=== PATIENT | female | born 1980 | race Caucasian/White ===

== ENCOUNTER 2016-10-20 00:47 | Emergency (ER) | payer MEDICAID ==
[~2016-10-20] VITALS: Ht 160 cm; Wt 95.6 kg
[~2016-10-20 00:47] MED LIST: CIPR500T4 PO; FAMO-18 PO; FOLI-49 PO; HYDR-3498 PO; IBUP-1542 PO; ONDA4TAB8 PO; PREN-29 PO
[2016-10-20 00:56] VITALS: Ht 160 cm; Wt 95.6 kg
[2016-10-20] MEDS ORDERED: ALBU8.5H3 INH (01:23)
[2016-10-20] MEDS ORDERED: AZIT250T94 PO (01:23)
[2016-10-20] MEDS ORDERED: BENZ100C70 PO (01:23)
[2016-10-20 01:36] VITALS: BP 115/70; PULSE 64; RESP 18; TEMP 98.5
--- NOTE | 2016-10-20 01:39 | ERD ---
ER Documentation Chief Complaint Date/Time DATE: 10/20/16 TIME: 01:37 Chief Complaint COUGH X 2 WKS HPI 36-year-old female with no significant past medical history presents the ED complaining of a productive cough that started 2 weeks ago. Patient states that she is tried taking Mucinex without relief of her symptoms. States that her last menses was a few days ago. Reports that her daughter is also sick with similar symptoms. Denies any chest pain, shortness of breath, wheezing, abdominal pain, nausea, vomiting, diarrhea. ROS All systems reviewed and are negative except as per history of present illness. Medications Home Meds Active Scripts Guaifenesin (Guaifenesin) 100 Mg/5 Ml Liquid, 200 MG PO Q6H Y for COUGH, #120 ML Prov:JOHN LEE PA-C 10/20/16 Albuterol Sulfate* (Proair HFA*) 8.5 Gm Hfa.aer.ad, 2 PUFF INH Q4, #1 INHALER Prov:JOHN LEE PA-C 10/20/16 Azithromycin* (Zithromax*) 250 Mg Tablet, 250 MG PO .ZPACK DIRECTED, #6 TAB TAKE 500 MG (2 TABS) THE FIRST DAY THEN 250 MG (1 TAB) DAYS 2-5 Prov:JOHN LEE PA-C 10/20/16 Famotidine* (Pepcid*) 20 Mg Tablet, 20 MG PO BID for 14 Days, TAB Prov:BRANDY ADLER 08/10/15 Ciprofloxacin Hcl* (Ciprofloxacin Hcl*) 500 Mg Tablet, 500 MG PO BID for 7 Days , TAB Prov:BRANDY ADLER 08/10/15 Ondansetron Hcl* (Zofran*) 4 Mg Tablet, 4 MG PO Q6H for NAUSEA AND/OR VOMITING, #30 TAB Prov:BRANDY ADLER 08/10/15 Ibuprofen* (Motrin*) 600 Mg Tab, 600 MG PO Q6, #30 TAB Prov:BRANDY ADLER 08/10/15 Hydrocodone Bit-Acetaminophen* ([place]*) 5-325 Mg Tab, 1 TAB PO Q6 Y for PAIN, # 20 TAB Prov:BRANDY ADLER 08/10/15 Reported Medications Folic Acid* (Folic Acid*) 1 Mg Tablet, 1 MG PO DAILY, TAB 04/04/15 Vit-Fe Fumarate-FA* (Franko Tablet*) 1 Tab Tablet, 1 TAB PO, TAB 04/04/15 Allergies Allergies: Coded Allergies: No Known Allergy (Unverified , 08/10/15) PMhx/Soc History of Surgery: No Anesthesia Reaction: No Hx Neurological Disorder: No Hx Respiratory Disorders: No Hx Cardiac Disorders: No Hx Psychiatric Problems: No Hx Miscellaneous Medical Probl: No Hx Alcohol Use: No Hx Substance Use: No Hx Tobacco Use: No Physical Exam Vitals Vital Signs Date Time Temp Pulse Resp B/P Pulse Ox O2 Delivery O2 Flow Rate FiO2 10/20/16 01:36 98.5 64 18 115/70 100 Room Air 10/20/16 00:56 97.3 71 16 135/68 99 Physical Exam Const: Cxz-bdt-hrjhyzsjy, well-nourished. In no acute distress. Head: Atraumatic, normocephalic Eyes: Normal Conjunctiva without injection. No purulent discharge. PERRL. EOMI ENT: Normal external ear. Ear canal without erythema. Tympanic membrane pearly king without effusion or bulging. Nasal canal clear with normal turbinates. Moist oropharynx without tonsillar exudates. Non-erythematous pharynx. Uvula midline. No drooling. No trismus. Neck: Full range of motion. No meningismus. No cervical lymphadenopathy. Resp: Clear to auscultation bilaterally. No wheezing, rhonchi, rales, or crackles. No accessory muscle use. No retractions. Cardio: Regular rate and rhythm. No murmurs, rubs or gallops. Abd: Soft, non tender, non distended. Normal bowel sounds. No palpable masses. No rebound tenderness. No guarding. Skin: No petechiae or rashes Back: No midline tenderness. No CVA tenderness. Ext: No cyanosis, or edema. Neur: Awake and alert. Psych: Normal Mood and Affect Procedures/MDM This is a 36-year-old female with no significant past medical history presents to the ED complaining of an intermittent productive cough that started 2 weeks ago. Patient is afebrile and nontoxic-appearing. Patient has normal vital signs. This patient presents to the ED with symptoms consistent with bronchitis. She is appropriate for outpatient management. Patient is afebrile and has normal vital signs. Patient's physical exam include lungs which were clear to auscultation and a normal pulse oximetry. There is a low suspicion for pneumonia, pneumothorax, pulmonary embolism, epiglottitis, otitis media, otitis externa, viral/strep pharyngitis, sinusitis, peritonsillar abscess, mastoiditis , retropharyngeal abscess, meningitis, sepsis, acute abdomen or other emergent conditions. Discharge medications: Zithromax, Tessalon Perles, Pro-air Patient was instructed to return to the ED for any new or worsening symptoms. They should otherwise follow up with the primary care provider within 1-2 days. The patient's questions were answered at the time of discharge. Patient understood and agreed with discharge management. Departure Diagnosis: Primary Impression: Bronchitis Condition: Stable Patient Instructions: Bronchitis, Antiobiotic Treatment (Adult) Referrals: COMMUNITY CLINICS YOU HAVE RECEIVED A MEDICAL SCREENING EXAM AND THE RESULTS INDICATE THAT YOU DO NOT HAVE A CONDITION THAT REQUIRES URGENT TREATMENT IN THE EMERGENCY DEPARTMENT. FURTHER EVALUATION AND TREATMENT OF YOUR CONDITION CAN WAIT UNTIL YOU ARE SEEN IN YOUR DOCTORS OFFICE WITHIN THE NEXT 1-2 DAYS. IT IS YOUR RESPONSIBILITY TO MAKE AN APPOINTMENT FOR FOLOW-UP CARE. IF YOU HAVE A PRIMARY DOCTOR --you should call your primary doctor and schedule an appointment IF YOU DO NOT HAVE A PRIMARY DOCTOR YOU CAN CALL OUR PHYSICIAN REFERRAL HOTLINE AT IF YOU CAN NOT AFFORD TO SEE A PHYSICIAN YOU CAN CHOSE FROM THE FOLLOWING [facility] CLINICS [facility] [address] [facility]. [facility] [address] [facility] [facility] [address] [facility] [address] [facility] [address] [facility]. [facility]. [address] [facility]. [facility] YOU HAVE RECEIVED A MEDICAL SCREENING EXAM AND THE RESULTS INDICATE THAT YOU DO NOT HAVE A CONDITION THAT REQUIRES URGENT TREATMENT IN THE EMERGENCY DEPARTMENT. FURTHER EVALUATION AND TREATMENT OF YOUR CONDITION CAN WAIT UNTIL YOU ARE SEEN IN YOUR DOCTORS OFFICE WITHIN THE NEXT 1-2 DAYS. IT IS YOUR RESPONSIBILITY TO MAKE AN APPOINTMENT FOR FOLOW-UP CARE. IF YOU HAVE A PRIMARY DOCTOR --you should call your primary doctor and schedule and appointment IF YOU DO NOT HAVE A PRIMARY DOCTOR YOU CAN CALL OUR PHYSICIAN REFERRAL HOTLINE AT . IF YOU CAN NOT AFFORD TO SEE A PHYSICIAN YOU CAN CHOSE FROM THE FOLLOWING [facility] INSTITUTIONS: [facility] [address] [place] [address] [facility] [address] [place] [address] [facility] + [facility] [address] [place] [address] [facility] URGENT CARE/SPECIALTIES Additional Instructions: FOLLOW UP WITH YOUR PRIMARY CARE PHYSICIAN TOMORROW.Return to this facility if you are not improving as expected. JOHN LEE PA-C Oct 20, 2016 01:39
[2016-10-20] MEDS ORDERED: GUAI-637 PO (01:50)
== END 2016-10-20 02:12 | disposition home or self-care (01) ==
LOC: FTE 00:47
DX: J20.9 Acute bronchitis, unspecified (principal)
CPT/HCPCS: 99284

== ENCOUNTER 2016-10-26 18:51 | Emergency (ER) | payer MEDICAID ==
[~2016-10-26] VITALS: Ht 157.5 cm; Wt 95.0 kg
[~2016-10-26 18:51] MED LIST changes: +ALBU8.5H3 INH; +AZIT250T94 PO; +GUAI-637 PO
[2016-10-26 19:17] VITALS: Ht 157.5 cm; Wt 95.0 kg
--- NOTE | 2016-10-26 20:52 | ERD ---
ER Documentation Chief Complaint Date/Time DATE: 10/26/16 TIME: 20:49 Chief Complaint Cough x3 weeks fever and headache since yesterday HPI Patient is a 36-year-old female who presents to the ED with cough for 3 weeks and congestion. She states that she was given antibiotics last week however she stated that she did not take them as she is breast-feeding. She states that she had a fever of 99 at home. Denies abdominal pain, nausea, vomiting, diarrhea or constipation. Denies headache or dizziness. Denies neck pain or stiffness. Denies chills. Has not taken any medication for her symptoms. Denies leg pain or swelling. No recent travel or recent surgeries or use of OCPs. No other complaints. ROS All systems reviewed and are negative except as per history of present illness. Medications Home Meds Active Scripts Azithromycin* (Zithromax*) 250 Mg Tablet, 250 MG PO .WendyPAJONAH DIRECTED, #6 TAB TAKE 500 MG (2 TABS) THE FIRST DAY THEN 250 MG (1 TAB) DAYS 2-5 Prov:ANA FREGOSO PA-C 10/26/16 Guaifenesin (Guaifenesin) 100 Mg/5 Ml Liquid, 200 MG PO Q6H Y for COUGH, #120 ML Prov:JOHN LEE PA-C 10/20/16 Albuterol Sulfate* (Proair HFA*) 8.5 Gm Hfa.aer.ad, 2 PUFF INH Q4, #1 INHALER Prov:JOHN LEE PA-C 10/20/16 Azithromycin* (Zithromax*) 250 Mg Tablet, 250 MG PO .WendyPAJONAH DIRECTED, #6 TAB TAKE 500 MG (2 TABS) THE FIRST DAY THEN 250 MG (1 TAB) DAYS 2-5 Prov:JOHN LEE PA-C 10/20/16 Famotidine* (Pepcid*) 20 Mg Tablet, 20 MG PO BID for 14 Days, TAB Prov:BRANDY ADLER 08/10/15 Ciprofloxacin Hcl* (Ciprofloxacin Hcl*) 500 Mg Tablet, 500 MG PO BID for 7 Days , TAB Prov:BRANDY ADLER 08/10/15 Ondansetron Hcl* (Zofran*) 4 Mg Tablet, 4 MG PO Q6H for NAUSEA AND/OR VOMITING, #30 TAB Prov:BRANDY ADLER 08/10/15 Ibuprofen* (Motrin*) 600 Mg Tab, 600 MG PO Q6, #30 TAB Prov:BRANDY ADLER 08/10/15 Hydrocodone Bit-Acetaminophen* ([place]*) 5-325 Mg Tab, 1 TAB PO Q6 Y for PAIN, # 20 TAB Prov:BRANDY ADLER 08/10/15 Reported Medications Folic Acid* (Folic Acid*) 1 Mg Tablet, 1 MG PO DAILY, TAB 04/04/15 Vit-Fe Fumarate-FA* (Franko Tablet*) 1 Tab Tablet, 1 TAB PO, TAB 04/04/15 Allergies Allergies: Coded Allergies: No Known Allergy (Unverified , 08/10/15) PMhx/Soc Medical and Surgical Hx: pt denies Medical Hx History of Surgery: Yes (gallbladder 07/2015) Anesthesia Reaction: No Hx Neurological Disorder: No Hx Respiratory Disorders: No Hx Cardiac Disorders: No Hx Psychiatric Problems: No Hx Miscellaneous Medical Probl: No Hx Alcohol Use: No Hx Substance Use: No Hx Tobacco Use: No Smoking Status: Never smoker FmHx Family History: No coronary disease, No diabetes, No other Physical Exam Vitals Vital Signs Date Time Temp Pulse Resp B/P Pulse Ox O2 Delivery O2 Flow Rate FiO2 10/26/16 19:17 98.9 86 20 147/65 97 Physical Exam GENERAL: Well-developed, well-nourished female. Appears in no acute distress. EYES: Pupils are equally reactive bilaterally. EOMs grossly intact. No conjunctival erythema. ENT: Moist mucous membranes. No uvula deviation. No kissing tonsils. No exudates. Bilateral TM nonerythematous and nondraining. No mastoid tenderness NECK: Supple. No lymphadenopathy or thyromegaly. No meningismus. negative kernig. negative brudinski. LUNG: Clear to auscultation bilaterally. No rhonchi, wheezing, rales or coarse breath sounds. No retractions HEART: Regular rate and rhythm. No murmurs, rubs or gallops. NEUROLOGIC: Alert and oriented. Moving all four extremities. 5/5 strength in all extremities. Normal speech. Steady gait. Cranial nerves II through XII intact SKIN: Normal color. Warm and dry. No rashes or lesions. Capillary refill < 2 seconds Procedures/[facility] ER COURSE: I kept the patient and/or family informed of laboratory and diagnostic imaging results throughout the emergency room course. IMAGING STUDIES [place] [address] Radiology Main Line: [phone] DIAGNOSTIC IMAGING REPORT Patient: IMER HENDERSON : 1980 Age: 36 Sex: F MR #: [id number] DOS: 10/26/162000 Ordering MD: ANA FREGOSO PA-C Location: [facility] Room/Bed: PROCEDURE: XR Chest AP portable CLINICAL INDICATION: Cough TECHNIQUE: An AP portable radiograph of the chest was submitted. COMPARISON: None. FINDINGS: Support Hardware: None Cardiovascular: The cardiovascular silhouette appears unremarkable. Lung Sawant: The lung sawant appear clear with no nodule, alveolar infiltrate, or interstitial prominence evident. Pleural Spaces: No pneumothorax or pleural effusion is identified. Osseous Structures: The osseous structures appear intact. Soft Tissues: The soft tissues appear generous. IMPRESSION: Unremarkable portable chest. Physician Lilian Date Time Electronically viewed and signed by Physician Lilian on 10/26/2016 21:00 RH/ CC: ANA FREGOSO PA-C MEDICAL DECISION MAKING: This is a 36-year-old female who presents with cough 3 weeks. Vital signs were reviewed. Patient is afebrile. Patient is not hypoxic. Patient is not toxic or ill-appearing. Patient likely has bronchitis. X-rays of by radiologist is unremarkable. Low suspicion for pneumonia, PE, pneumothorax, ACS, epiglottitis , obstruction, TB, pertussis, meningitis, sepsis. I will be re-prescribing azithromycin. Patient is able to breast-feed with this medication. Patient does not show signs of respiratory distress respiratory failure and speaking in full sentences. DISCHARGE: At this time, patient is stable for discharge and outpatient management with no new complaints during the ER course. Patient was sent home with azithromycin. Patient will be discharged home with instructions to recheck for new or worsening symptoms such as fever, nausea, weakness, LOC and to follow up with primary care in the next 1-2 days. Patient was advised to return to the ER for any new or worsening symptoms. Plan was discussed and patient and/or family understands and agrees. Home instructions were given. Departure Diagnosis: Primary Impression: Bronchitis Condition: Stable ANA FREGOSO PA-C Oct 26, 2016 20:52
--- NOTE | 2016-10-26 21:00 | RADRPT ---
PROCEDURE: XR Chest AP portable CLINICAL INDICATION: Cough TECHNIQUE: An AP portable radiograph of the chest was submitted. COMPARISON: None. FINDINGS: Support Hardware: None Cardiovascular: The cardiovascular silhouette appears unremarkable. Lung Barrett: The lung barrett appear clear with no nodule, alveolar infiltrate, or interstitial promi nence evident. Pleural Spaces: No pneumothorax or pleural effusion is identified. Osseous Structures: The osseous structures appear intact. Soft Tissues: The soft tissues appear generous. IMPRESSION: Unremarkable portable chest. Physician Lilian Date Time Electronically viewed and signed by Heraclio Bull Physician on 10/26/2016 21:00 /
[2016-10-26] MEDS ORDERED: AZIT250T94 PO (21:09)
== END 2016-10-26 21:40 | disposition home or self-care (01) ==
LOC: FTE 18:51
DX: J20.9 Acute bronchitis, unspecified (principal)
CPT/HCPCS: 71010; Z7502

== ENCOUNTER 2016-11-30 20:58 | Emergency (ER) | payer MEDICAID ==
[~2016-11-30] VITALS: Ht 157.5 cm; Wt 94.5 kg
[2016-11-30 21:00] VITALS: Ht 157.5 cm; Wt 94.5 kg
[2016-11-30] MEDS ORDERED: GUAI120S26 PO (21:17)
[2016-11-30] MEDS ORDERED: ALBU8.5H3 INH (21:17)
[2016-11-30] MEDS ORDERED: FLUT9.9S NASAL (21:17)
[2016-11-30] MEDS ORDERED: CETI10CA PO (21:17)
--- NOTE | 2016-11-30 21:24 | ERD ---
ER Documentation Chief Complaint Date/Time DATE: 11/30/16 TIME: 21:23 Chief Complaint cough x 1 month, sore throat HPI 36-year-old female presents here in emergency department for complaint of sore throat cough for a congestion and off wheezing for one month. Patient has been seen before for bronchitis, already told antibiotics, finished dosage. Patient does not have any fever. Patient does not have any chest pain or palpitations. Patient has been having sneezing, runny nose nasal congestion. Patient does not have any shortness of breath. ROS All systems reviewed and are negative except as per history of present illness. Medications Home Meds Active Scripts Fluticasone Propionate (Flonase Allergy Relief) 9.9 Ml [place].susp, 2 SPRAY NASAL DAILY, #1 BOTTLE TO EACH NOSTRIL Prov:BERNABE PATRICK NP 11/30/16 Cetirizine Hcl* (Zyrtec*) 10 Mg Capsule, 10 MG PO DAILY, #30 TAB.CHEW Prov:BERNABE PATRICK NP 11/30/16 Iruaqlnmtfd-J-Qngesedyuq Hb* (Guaifenesin* DM Syrup) 120 Ml Syrup, 10 ML PO Q4H Y for COUGH, #120 ML Prov:BERNABE PATRICK NP 11/30/16 Albuterol Sulfate* (Proair HFA*) 8.5 Gm Hfa.aer.ad, 2 PUFF INH Q4H Y for WHEEZING AND SOB, #1 INHALER Prov:BERNABE PATRICK NP 11/30/16 Azithromycin* (Zithromax*) 250 Mg Tablet, 250 MG PO .SUSI DIRECTED, #6 TAB TAKE 500 MG (2 TABS) THE FIRST DAY THEN 250 MG (1 TAB) DAYS 2-5 Prov:ANA FREGOSO PA-C 10/26/16 Guaifenesin (Guaifenesin) 100 Mg/5 Ml Liquid, 200 MG PO Q6H Y for COUGH, #120 ML Prov:JONH LEE PA-C 10/20/16 Albuterol Sulfate* (Proair HFA*) 8.5 Gm Hfa.aer.ad, 2 PUFF INH Q4, #1 INHALER Prov:JOHN LEE PA-C 10/20/16 Azithromycin* (Zithromax*) 250 Mg Tablet, 250 MG PO .WendyPACK DIRECTED, #6 TAB TAKE 500 MG (2 TABS) THE FIRST DAY THEN 250 MG (1 TAB) DAYS 2-5 Prov:JOHN LEE Alicia STEPHEN 10/20/16 Famotidine* (Pepcid*) 20 Mg Tablet, 20 MG PO BID for 14 Days, TAB Prov:BRANDY ADLER 08/10/15 Ciprofloxacin Hcl* (Ciprofloxacin Hcl*) 500 Mg Tablet, 500 MG PO BID for 7 Days , TAB Prov:BRANDY ADLER 08/10/15 Ondansetron Hcl* (Zofran*) 4 Mg Tablet, 4 MG PO Q6H for NAUSEA AND/OR VOMITING, #30 TAB Prov:BRANDY ADLER 08/10/15 Ibuprofen* (Motrin*) 600 Mg Tab, 600 MG PO Q6, #30 TAB Prov:BRANDY ADLER 08/10/15 Hydrocodone Bit-Acetaminophen* ([place]*) 5-325 Mg Tab, 1 TAB PO Q6 Y for PAIN, # 20 TAB Prov:BRANDY ADLER 08/10/15 Reported Medications Folic Acid* (Folic Acid*) 1 Mg Tablet, 1 MG PO DAILY, TAB 04/04/15 Vit-Fe Fumarate-FA* (Franko Tablet*) 1 Tab Tablet, 1 TAB PO, TAB 04/04/15 Allergies Allergies: Coded Allergies: No Known Allergy (Unverified , 08/10/15) PMhx/Soc History of Surgery: Yes (gallbladder 07/2015) Anesthesia Reaction: No Hx Neurological Disorder: No Hx Respiratory Disorders: No Hx Cardiac Disorders: No Hx Psychiatric Problems: No Hx Miscellaneous Medical Probl: No Hx Alcohol Use: No Hx Substance Use: No Hx Tobacco Use: No FmHx Family History: No coronary disease, No diabetes, No other Physical Exam Vitals Vital Signs Date Time Temp Pulse Resp B/P Pulse Ox O2 Delivery O2 Flow Rate FiO2 11/30/16 21:00 97.8 60 20 122/58 100 Physical Exam GENERAL: The patient is well developed and appropriate for usual state of health, in no apparent distress. CHEST: Clear to auscultation bilaterally. There are no rales, wheezes or rhonchi. HEART: Regular rate and rhythm. No murmurs, clicks, rubs or gallops. No S3 or S4. ABDOMEN: Soft, nontender and nondistended. Good bowel sounds. No rebound or guarding. No gross peritonitis. No gross organomegaly or masses. No Pinto sign or McBurney point tenderness. BACK: No midline or flank tenderness. EXTREMITIES: Equal pulses bilaterally. There is no peripheral clubbing, cyanosis or edema. No focal swelling or erythema. Full range of motion. Grossly neurovascularly intact. NEURO: Alert and oriented. Cranial nerves 2-12 intact. Motor strength in all 4 extremities with 5/5 strength. Sensation grossly intact. Normal speech and gait. SKIN: There is no apparent rash or petechia. The skin is warm and dry. HEMATOLOGIC AND LYMPHATIC: There is no evidence of excessive bruising or lymphedema. No gross cervical, axillary, or inguinal lymphadenopathy. Procedures/MDM Medical Decision Making: Patient symptoms are most likely consistent with runny cough, possible allergic rhinitis related. There is low suspicion for Pneumonia at this time since patients lungs sounds are clear, patient O2 saturation is normal and patient doesnt show any respiratory distress. Radiology exam does not indicated at this time. There is low suspicion for other cardiopulmonary emergencies at this time such as CHF, Pulmonary Embolism, Pneumothorax, Aortic Aneurysm or any other cardiopulmonary emergencies at this time. There is low suspicion for sepsis. Patient appears well and is hemodynamically stable. She does not have any fever. Disposition: Home. Condition: Stable Prescriptions: Albuterol guaifenesin DM Zyrtec Flonase Instructions: Patient is advised to take medications as prescribed. Patient is advised to rest. Patient advised to increase fluid intake, do humidifier at home and if possible, do salt water gargles. Patient is advised that if symptoms are worse, shortness of breath, uncontrolled fever, stridor, vomiting, worst signs and symptoms to return to emergency department immediately. Otherwise, patient is advised to follow up with primary doctor in 5-7 days. Departure Diagnosis: Primary Impression: Chronic cough Condition: Stable Patient Instructions: Cough, Chronic, Uncertain Cause, (Adult) Referrals: [facility] ([place]) Usted se escobar hecho un examen mdico de control que le indica que no est en aurora condicin que requiera tratamiento urgente en el Departamento de Emergencia. Un estudio ms profundo y el tratamiento de haji condicin pueden esperar sin ningn riesgo hasta que usted sea atendida/o en el consultorio de haji mdico o aurora cl manda. Es responsabilidad suya arreglar aurora castro para el seguimiento del markell. MANEJO DE CONDICIONES NO URGENTES EN EL FUTURO 1) Si usted tiene un mdico de atencin primaria: Usted debera llamar a haji mdico de atencin primaria antes de venir al departamento de emergencia. Despus de las horas de consultorio, haji doctor o haji asociado/a est disponible por telfono. El mdico o enfermero de cindy en el servicio telefnico puede asesorarle por lisa medio para atender el problema, o markell contrario se puede programar aurora castro. 2) Si usted no tiene un mdico de atencin primaria: Llame al mdico o clnica de referencia que aparece abajo johana las horas de consultorio para hacer aurora castro para que le vean. CLINICAS: [facility] [phone] [address] [facility] [phone] [address] [facility]. [facility] [phone] [address] [facility]. [place] [id number] [phone] [facility] [place] [address] [phone] [facility]. [phone] [facility] () Usted se escobar hecho un examen mdico de control que le indica que no est en aurora condicin que requiera tratamiento urgente en el Departamento de Emergencia. Un estudio ms profundo y el tratamiento de haji condicin pueden esperar sin ningn riesgo hasta que usted sea atendida/o en el consultorio de haji mdico o aurora cl manda. Es responsabilidad suya arreglar aurora castro para el seguimiento del markell. MANEJO DE CONDICIONES NO URGENTES EN EL FUTURO 1) Si usted tiene un mdico de atencin primaria: Usted debera llamar a haji mdico de atencin primaria antes de venir al departamento de emergencia. Despus de las horas de consultorio, haji doctor o haji asociado/a est disponible por telfono. El mdico o enfermero de cindy en el servicio telefnico puede asesorarle por lisa medio para atender el problema, o markell contrario se puede programar aurora castro. 2) Si usted no tiene un mdico de atencin primaria: Llame al mdico o condado institucions de referencia que aparece abajo johana las horas de consultorio para hacer aurora castro para que le vean. SI USTED NO PUEDE PAGAR PARA BRIDGET UN MEDICO puede ir a: [facility] [id number] [place] [address] [facility] [address] [place] [address] [facility] [address] [place] [address] [facility] [address] [place], [place] [id number] CUISIA,BERNABE Vargas NP Nov 30, 2016 21:24
== END 2016-11-30 21:24 | disposition home or self-care (01) ==
LOC: E/R 20:58
DX: R05 Cough (principal)
CPT/HCPCS: 99283

== ENCOUNTER 2018-09-07 10:49 | Inpatient (IN) | payer BC ==
[~2018-09-07] VITALS: Ht 160 cm; Wt 105.0 kg
[~2018-09-07 10:49] MED LIST changes: -ALBU8.5H3 INH; +ALBU8.5H8 INH; +AZIT250T PO; -AZIT250T94 PO; +CETI10CA PO; -FAMO-18 PO; +FAMO-96 PO; +FLUT9.9S NASAL; +GUAI120S26 PO; +OXYTOCIN 30 UNITS/LR 500 ML BAG IV ONE
[2018-09-07] MEDS ORDERED: LACTATED RINGER'S 1,000 ML IV SCH (10:59)
[2018-09-07] MEDS ORDERED: OXYTOCIN 30 UNITS/LR 500 ML IV SCH ×2 (11:00→13:55)
[2018-09-07] MEDS ORDERED: CEFAZOLIN 2 GM/50 ML (PMX) 50 ML IVPB SCH (11:00)
[2018-09-07] MEDS ORDERED: METHYLERGONOVINE 0.2 MG INJ IM PRN ×2 (11:00→14:00)
[2018-09-07] MEDS ORDERED: CARBOPROST 250 MCG INJ IM PRN ×2 (11:00→14:00)
[2018-09-07] MEDS ORDERED: OXYTOCIN 30 UNITS/LR 500 ML IV PRN ×2 (11:00→14:00)
[2018-09-07] MEDS ORDERED: MISOPROSTOL 200 MCG TAB PR PRN ×2 (11:00→14:00)
[2018-09-07 11:25] VITALS: BP 109/65; PULSE 85; RESP 20
[2018-09-07 11:29] VITALS: Ht 160 cm; Wt 105.0 kg
[2018-09-07] MEDS ORDERED: PNV11TAB PO (11:29)
--- NOTE | 2018-09-07 12:40 | PREAC ---
Date/Time of Note Date/Time of Note DATE: 09/07/18 TIME: 12:39 Anesthesia Eval and Record Evaluation Time Pre-Procedure Interview DATE: 09/07/18 TIME: 12:39 Age 38 Sex female NPO: 8 hrs Preoperative diagnosis Planned procedure cs Past Medical History Past Medical History: Includes Pulm: Asthma GI: Morbid obesity Surgery & Anesthesia Issues No known issue Meds Anticoagulation: No Beta Mike within 24 hr: No Reason Beta Mike not given: Pt. not on B-Mike Active Scripts Fluticasone Propionate (Flonase Allergy Relief) 9.9 Ml [place].susp, 2 SPRAY NASAL DAILY, #1 BOTTLE TO EACH NOSTRIL Prov:BERNABE PATRICK NP 11/30/16 Cetirizine Hcl* (Zyrtec*) 10 Mg Capsule, 10 MG PO DAILY, #30 TAB.CHEW Prov:BERNABE PATRICK NP 11/30/16 Itwmvsqeler-D-Glklspjrlz Hb* (Guaifenesin* DM Syrup) 120 Ml Syrup, 10 ML PO Q4H PRN for COUGH, #120 ML Prov:BERNABE PATRICK NP 11/30/16 Albuterol Sulfate* (Proair HFA*) 8.5 Gm Hfa.aer.ad, 2 PUFF INH Q4H PRN for WHEEZING AND SOB, #1 INHALER Prov:BERNABE PATRICK NP 11/30/16 Azithromycin* (Zithromax*) 250 Mg Tablet, 250 MG PO .ZPACK DIRECTED, #6 TAB TAKE 500 MG (2 TABS) THE FIRST DAY THEN 250 MG (1 TAB) DAYS 2-5 Prov:ANA FREGOSO PA-C 10/26/16 Guaifenesin (Guaifenesin) 100 Mg/5 Ml Liquid, 200 MG PO Q6H PRN for COUGH, #120 ML Prov:JOHN LEE PA-C 10/20/16 Albuterol Sulfate* (Proair HFA*) 8.5 Gm Hfa.aer.ad, 2 PUFF INH Q4, #1 INHALER Prov:JOHN LEE PA-C 10/20/16 Azithromycin* (Zithromax*) 250 Mg Tablet, 250 MG PO .ZPACK DIRECTED, #6 TAB TAKE 500 MG (2 TABS) THE FIRST DAY THEN 250 MG (1 TAB) DAYS 2-5 Prov:JOHN LEE PA-C 10/20/16 Famotidine* (Pepcid*) 20 Mg Tablet, 20 MG PO BID for 14 Days, TAB Prov:BRANDY ADLER 08/10/15 Ciprofloxacin Hcl* (Ciprofloxacin Hcl*) 500 Mg Tablet, 500 MG PO BID for 7 Days, TAB Prov:BRANDY ADLER 08/10/15 Ondansetron Hcl* (Zofran*) 4 Mg Tablet, 4 MG PO Q6H for NAUSEA AND/OR VOMITING, #30 TAB Prov:BRANDY ADLER 08/10/15 Ibuprofen* (Motrin*) 600 Mg Tab, 600 MG PO Q6, #30 TAB Prov:BRANDY ADLER 08/10/15 Hydrocodone Bit-Acetaminophen* ([place]*) 5-325 Mg Tab, 1 TAB PO Q6 PRN for PAIN, #20 TAB Prov:BRANDY ADLER 08/10/15 Reported Medications [id number] Nmfztuyf-HH-QNB ( ) 1 Each Tablet, 1 TAB PO DAILY, TAB 09/07/18 Folic Acid* (Folic Acid*) 1 Mg Tablet, 1 MG PO DAILY, TAB 04/04/15 Vit-Fe Fumarate-FA* ([place] Tablet*) 1 Tab Tablet, 1 TAB PO, TAB 04/04/15 Current Medications Lactated Ringer's 1,000 ml @ 125 mls/hr Q8H IV Last administered on 09/07/18at 12:11; Admin Dose 125 MLS/HR; Start 09/07/18 at 10:59 Cefazolin Sodium/ Dextrose 50 ml @ 100 mls/hr ONCE IVPB ; Start 09/07/18 at 11:00 Oxytocin/Lactated Ringer's 500 ml @ 125 mls/hr POST IV ; Start 09/07/18 at 11:00 Oxytocin/Lactated Ringer's 500 ml @ 0 mls/hr ONCE PRN IV VAGINAL BLEEDING; Start 09/07/18 at 11:00 Methylergonovine Maleate (Methergine) 0.2 mg ONCE PRN IM VAGINAL BLEEDING; Start 09/07/18 at 11:00 Carboprost Tromethamine (Hemabate) 250 mcg ONCE PRN IM VAGINAL BLEEDING; Start 09/07/18 at 11:00 Misoprostol (Cytotec) 1,000 mcg ONCE PRN NE VAGINAL BLEEDING; Start 09/07/18 at 11:00 Meds reviewed: Yes Allergies Coded Allergies: No Known Allergy (Unverified , 08/10/15) Allergies Reviewed: Yes Labs/Studies Labs Reviewed: Reviewed by anesthesiologist Result Diagram: 09/07/18 1204 Laboratory Tests 09/07/18 12:04 test: Positive Studies: ECG Pre-procedure Exam Last vitals Vital Signs Date Temp Pulse Resp B/P (MAP) Pulse Ox O2 O2 Flow FiO2 Time Delivery Rate 09/07/18 98.0 85 20 109/65 98 Room Air 11:25 (80) Airway: Adequate mouth opening, Adequate thyromental dist Mallampati: Mallampati II Teeth: Normal Lung: Normal Heart: Normal ASA Physical Status ASA physical status: 2 Emergency: None Planned Anesthetic Neuraxial: Spinal Planned Pain Management Sub-arachniod narcotics Pre-operative Attestations Prior to commencing anesthesia and surgery, the patient was re-evaluated, there was verification of: *The patient's identity *The results of appropriate recent lab work and preoperative vital signs *The above evaluation not changing prior to induction *Anesthetic plan, risk benefits, alternative and complications discussed with patient/family; questions answered; patient/family understands, accepts and wishes to proceed. DANIELLA CURRY Sep 07, 2018 12:40
[2018-09-07] MEDS ORDERED: METOCLOPRAMIDE 10 MG INJ IV PRN (13:00)
[2018-09-07] MEDS ORDERED: NALOXONE (0.4 MG/ML) INJ IV PRN (13:00)
[2018-09-07] MEDS ORDERED: KETOROLAC 30 MG INJ IV PRN (13:00)
[2018-09-07] MEDS ORDERED: HYDROmorphONE 0.5 MG/0.5 ML SYG IV PRN ×2 (13:00)
[2018-09-07] MEDS ORDERED: DIPHENHYDRAMINE 50 MG INJ IV PRN ×2 (13:00)
[2018-09-07] MEDS ORDERED: HYDROmorphONE 1 MG/5 ML IV SYRINGE IV PRN ×3 (13:00)
[2018-09-07] MEDS ORDERED: ALBUTEROL 0.083% (NEB) 2.5 MG/3 ML AMP HHN PRN (13:00)
[2018-09-07] MEDS ORDERED: FENTAnyl 50 MCG/ML VIAL IV PRN ×3 (13:00)
[2018-09-07] MEDS ORDERED: ONDANSETRON 4 MG INJ IV PRN ×2 (13:00)
[2018-09-07] MEDS ORDERED: PHENYLephrine (100 MCG/ML) 5ML SYG ONE ×3 (13:09→13:51)
[2018-09-07] MEDS ORDERED: EPHEDrine 25 MG/5 ML SYG ONE (13:26)
[2018-09-07] MEDS ORDERED: morphine SULFATE/PF (10 MG/10 ML) INJ ONE (13:47)
--- NOTE | 2018-09-07 13:50 | PREOPHP ---
DATE OF ADMISSION: 09/07/2018 HISTORY OF PRESENT ILLNESS: Ms. Gambino is a 38-year-old 2, para 1, EDC 09/14/2018 intrau terine at 39 weeks gestational age, admitted today for elective primary delivery s econdary to suspected macrosomia. She denies any contractions, vaginal bleeding, or discharge. Patient understands that the estimated weight performed on 08/30/2018 of 9 pounds 9 ounces is only an estimation and is not accurate. After explaining the risks, benefits and alternatives, the patient agreed to undergo a primary . Her care took place with Dr. Camp. PAST MEDICAL HISTORY: None. MEDICATIONS: vitamins. PAST SURGICAL HISTORY: Laparoscopic cholecystectomy. OBSTETRICAL HISTORY: x1 vaginal delivery. GYNECOLOGIC HISTORY: 12, regular 3 to 4 days. Denies any sexually transmitted disease. Sexually ac tive with 1 partner. SOCIAL HISTORY: Denies any smoking, drugs or alcohol. FAMILY HISTORY: None. REVIEW OF SYSTEMS: All within normal except history of present illness. PHYSICAL EXAMINATION: HEENT: Within normal. LUNGS: CTA bilateral. CARDIOVASCULAR: S1, S2. Regular rhythm. ABDOMEN: Obese, gravid, nontender. Negative CVA bilateral. EXTREMITIES: No calf tenderness. PELVIC: Vaginal exam deferred. heart tracing category 1. [place] occasional contractions. ASSESSMENT: Intrauterine at 39 weeks gestational age with suspected macrosomia. Pat ient concern for shoulder dystocia and desires elective primary delivery. PLAN: Consent for a primary . Risks, benefits and alternatives explained. All questions w ere answered. Dictated By: LIAM BLAND/NTS Conf#: [id number] DID#: [id number] CC: LIAM ROMERO MD;*EndCC*
--- NOTE | 2018-09-07 13:55 | OPPN ---
Date/Time of Note Date/Time of Note DATE: 09/07/18 TIME: 13:53 Operative Report Planned Procedure Procedure date Sep 07, 2018 Procedure(s) primary low transverse CD with myomectomy Performed by see signature line Senior Animator: SAGAR DEL ANGEL MD 2nd Senior Animator none Pre-procedure diagnosis iup at 39 wks ga, suspected macrosomia desire CD for concerns of shoulder dystocia [id number] Anesthesia Type: Ztyer5l spinal Post-Procedure Post-procedure diagnosis same Findings a viable male 9/9 weight 8lb 7 oz, 1 cm firbroid in lower uterine segment. normal tubes and ovaries Estimated Blood Loss: 500 - 600 mls Specimen(s) fibroid Grafts/Implant(s) none Complication(s) none LIAM ROMERO MD Sep 07, 2018 13:55
[2018-09-07] MEDS: CEFAZOLIN 2 GM/50 ML (PMX) 50 ML IVPB SCH ×2 (14:00→22:14)
[2018-09-07] MEDS ORDERED: NACL 0.9% 3 ML SYG IV SCH (14:00)
[2018-09-07] MEDS ORDERED: LANOLIN HPA 1 PKT TOP PRN (14:00)
[2018-09-07] MEDS ORDERED: OXYCODONE/ACETAMINOPHEN (5/325) TAB PO PRN ×2 (14:00)
[2018-09-07] MEDS: KETOROLAC 30 MG INJ IV PRN ×2 (15:27→23:35)
[2018-09-07 17:15] VITALS: BP 116/58; PULSE 90; RESP 20
[2018-09-07 17:45] VITALS: BP 117/57; PULSE 86; RESP 18
--- NOTE | 2018-09-07 18:38 | PAC ---
Date/Time of Note Date/Time of Note DATE: 09/07/18 TIME: 18:38 Post-Anesthesia Notes Post-Anesthesia Note Last documented vital signs Vital Signs Date Temp Pulse Resp B/P (MAP) Pulse Ox O2 O2 Flow FiO2 Time Delivery Rate 09/07/18 99.0 90 20 116/58 Room Air 17:15 (77) 09/07/18 98 11:25 Activity: WNL Respiratory function: WNL Cardiovascular function: WNL Mental status: Baseline Pain reasonably controlled: Yes Hydration appropriate: Yes Nausea/Vomiting absent: Yes DANIELLA CURRY Sep 07, 2018 18:38
[2018-09-07 19:50] VITALS: BP 101/57; PULSE 86; RESP 18
[2018-09-07] MEDS: SENNA/DOCUSATE NA (8.6MG/50MG) TAB PO SCH (20:47)
[2018-09-08 00:40] VITALS: BP 120/66; PULSE 54; RESP 20
[2018-09-08 04:20] VITALS: BP 93/52; PULSE 77; RESP 18
[2018-09-08] MEDS: KETOROLAC 30 MG INJ IV PRN (05:32)
[2018-09-08] MEDS: CEFAZOLIN 2 GM/50 ML (PMX) 50 ML IVPB SCH ×2 (05:32→13:30)
[2018-09-08] MEDS: LACTATED RINGER'S 1,000 ML IV SCH (05:32)
[2018-09-08 08:30] VITALS: BP 101/56; PULSE 72; RESP 20
[2018-09-08] MEDS: SENNA/DOCUSATE NA (8.6MG/50MG) TAB PO SCH ×2 (10:09→21:49)
[2018-09-08 12:15] VITALS: BP 103/56; PULSE 77; RESP 20
[2018-09-08] MEDS: IBUPROFEN 600 MG TAB PO SCH ×2 (13:29→18:09)
--- NOTE | 2018-09-08 13:33 | OPR ---
DATE OF OPERATION: 09/08/2018 PREOPERATIVE DIAGNOSES: Intrauterine at 39 weeks gestational age, suspected macrosomia, desires delivery for concerns of should dystocia. POSTOPERATIVE DIAGNOSES: Intrauterine at 39 weeks gestational age, suspected macrosomia, desires delivery for concerns of shoulder dystocia. PROCEDURE: Primary low transverse delivery. myomectomy SURGEON: Liam Romero MD CHOCOLATE REFINING ROLLER: Dr. Rosa. ANESTHESIA: Spinal. COMPLICATIONS: None. ESTIMATED BLOOD LOSS: 500 mL. FINDINGS: A viable male, 9 and 9 respectively at 1 and 5 minutes, weight 8 pounds 7 ounces, x1 cord around the neck noted. Positive intramural fibroid on the anterior lower uterine segment of the uterus, normal ovaries and tubes. DESCRIPTION OF PROCEDURE: After explaining the risks, benefits and alternatives, the patient had consent signed in chart, the patient was taken to the operating room where spinal anesthesia was found to be adequate. She was then prepared and draped in normal sterile fashion in a dorsal supine position with a leftward tilt. A Pfannenstiel skin incision was then made with a scalpel and carried through the underlying of the fascia. The fascia was incised in midline, incision was extended laterally with [place] scissors. The superior aspect of the fascial incision was grasped with curved clamps, elevated and the underlying rectus muscles dissected off bluntly. Attention was then turned to the inferior aspect incision which in similar fashion was grasped, tented up with curved clamps and the rectus muscles dissected off bluntly. The rectus muscle was in midline, peritoneum identified, grasped with pickups and entered sharply with Metzenbaum scissors. This incision was extended superiorly and inferiorly with good visualization of the bladder. The bladder blade was then inserted and the vesicouterine peritoneum identified, grasped with pickups and entered sharply with Metzenbaum scissors. This incision was extended laterally and a bladder flap created digitally. The bladder blade was then reinserted and the segment incised in transverse fashion with a scalpel. The uterine incision was extended laterally. The bladder blade was then removed and the 's head delivered atraumatically. The nose and mouth were suctioned, cord clamped and cut. The infant was handed off to waiting yarn bleaching machine operator. The placenta was then removed. The uterus was cleared of all clots and debris. At this point, a myomectomy was performed in the lower uterine segment of the incision, which was approximately 1 cm in size. Good hemostasis was noted. The uterine incision was then repaired with 1-0 chromic in a running locked fashion. A second layer of same suture was used for obtaining excellent hemostasis and for imbrication. The uterus was returned to the abdomen. The gutters were cleared of all clots. The peritoneum and rectus abdominis muscles were reapproximated with 0 Vicryl in the interrupted fashion. The fascia was reapproximated with 0 Vicryl in a running fashion. The subcutaneous tissue was reapproximated with 2-0 plain gut in a running fashion. The skin was closed with absorbable macie. The patient tolerated procedure well. All counts were correct. The patient was taken to recovery room in stable condition. PATHOLOGY: Fibroids. Dictated By: LIAM BLAND/CHRISTINE Conf#: [id number] DID#: [id number] CC: LIAM ROMERO MD;*EndCC* MTDD
[2018-09-08 16:07] VITALS: BP 95/52; PULSE 71; RESP 20
[2018-09-08 20:20] VITALS: BP 100/57; PULSE 78; RESP 17
--- NOTE | 2018-09-08 22:23 | QN ---
Documentation Comment progress note pod 1 patient seen and evaluated no complaints vs stable afebrile ab c/d/i no distention extremity no edema no calf tenderness a/ sp cd pod 1 stable afebrile p/ encourage ambulation iron supplement LIAM ROMERO MD Sep 08, 2018 22:23
[2018-09-09] MEDS: LACTATED RINGER'S 1,000 ML IV SCH (01:30)
[2018-09-09 04:00] VITALS: BP 91/42; PULSE 62; RESP 18
[2018-09-09] MEDS: IBUPROFEN 600 MG TAB PO SCH ×5 (05:35→23:36)
[2018-09-09 08:00] VITALS: BP 104/51; PULSE 65; RESP 18
[2018-09-09] MEDS: SENNA/DOCUSATE NA (8.6MG/50MG) TAB PO SCH ×2 (09:41→21:24)
[2018-09-09] MEDS: FERROUS SULFATE (EC) 325 MG TAB PO SCH ×2 (09:41→21:24)
--- NOTE | 2018-09-09 11:39 | QN ---
Documentation Comment progress note pod 2 patient seen and evaluated no complaints vs stable afebrile ab c/d/i no distention extremity no edema no calf tenderness a/ sp cd pod 2 stable afebrile p/ encourage ambulation discharge home tomorrow LIAM ROMERO MD Sep 09, 2018 11:39
--- NOTE | 2018-09-09 11:45 | PD.PPDC ---
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
[2018-09-09 15:51] VITALS: BP 128/75; PULSE 68
[2018-09-09 21:00] VITALS: BP 107/55; PULSE 66; RESP 18
--- NOTE | 2018-09-09 22:15 | DS ---
DATE OF ADMISSION: 09/07/2018 DATE OF DISCHARGE: 09/10/2018 PRIMARY DIAGNOSES: Intrauterine at 39 weeks gestational age, suspected macrosomia, d esires delivery secondary to concerns of shoulder dystocia. PROCEDURE: Primary low transverse delivery. CONDITION ON DISCHARGE: Stable. ACTIVITY: None per vagina, no lifting x6 weeks. DIET: Regular. MEDICATIONS ON DISCHARGE: 1. Motrin. 2. Iron. DISCHARGE SUMMARY: Ms. Ana Maria Umanzor underwent a primary low transverse delivery on 0 09/07/2018. She had a viable male, 9 and 9 respectively at 1 and 5 minutes, weight 8 pounds 7 o unces. She had also a fibroid removed from the lower uterine segment which was approximately 1 cm in size. She had an uneventful postop day 1, 2, and 3. Her incision is clean, dry, and intact. She i s ambulating, tolerating diet, positive flatulence, positive bowel movement. She will follow up in t clinic in 2 weeks for /postop care. Dictated By: LIAM BLAND/CHRISTINE Conf#: [id number] DID#: [id number]
[2018-09-10 04:00] VITALS: BP 100/53; PULSE 65; RESP 17
[2018-09-10] MEDS: IBUPROFEN 600 MG TAB PO SCH ×2 (05:55→11:43)
[2018-09-10 08:00] VITALS: BP 113/65; PULSE 65; RESP 18
[2018-09-10] MEDS: SENNA/DOCUSATE NA (8.6MG/50MG) TAB PO SCH (09:13)
[2018-09-10] MEDS: FERROUS SULFATE (EC) 325 MG TAB PO SCH (09:13)
--- NOTE | 2018-09-17 18:45 | CONS ---
Consultation Date/Type/Reason Admit Date/Time Sep 07, 2018 at 10:49 Initial Consult Date 09/08/18 Type of Consult Anesthesiology Reason for Consultation Follow up Date/Time of Note DATE: 09/17/18 TIME: 18:44 24 HR Interval Summary Free Text/Dictation Pt seen and examined at bedside on 09/08/18 POD#1 s/p c/s. Pt received spinal duramorph for post op pain control. No N/V/STEVENS/Numbness in extremities. DANIELLA CURRY Sep 17, 2018 18:45
== END 2018-09-10 13:12 | disposition home or self-care (01) | DRG 788 ==
LOC: L-D 10:49 → PP1 17:09
PROVIDERS: ADMIT Obstetrics & Gynecology; ATTEND Obstetrics & Gynecology
PROC: 10D00Z1 Extraction of Products of Conception, Low, Open Approach (ICD-10-PCS; principal; 2018-09-08)
PROC: 0UB90ZZ Excision of Uterus, Open Approach (ICD-10-PCS; 2018-09-08)
DX: O66.0 Obstructed labor due to shoulder dystocia (principal); O36.63X0 Maternal care for excessive fetal growth, third trimester, not applicable or unspecified; Z3A.39 39 weeks gestation of pregnancy; Z37.0 Single live birth
CPT/HCPCS: 76815; 85025; 85610; 85730; 86592; 86850; 86885; 86900; 86901; 87340; 88305; 99464; J0690; J1885; J2274; J2370; J2405; J2590; J2790; J3010; J7120

== ENCOUNTER 2018-11-25 21:10 | Emergency (ER) | payer BC ==
[~2018-11-25] VITALS: Ht 162.6 cm; Wt 95.6 kg
[~2018-11-25 21:10] MED LIST changes: -AZIT250T PO; -CIPR500T4 PO; -FOLI-49 PO; -GUAI-637 PO; -GUAI120S26 PO; -HYDR-3498 PO; -ONDA4TAB8 PO; -OXYTOCIN 30 UNITS/LR 500 ML BAG IV ONE; +PNV11TAB PO; -PREN-29 PO
[2018-11-25 21:15] VITALS: Ht 162.6 cm; Wt 95.6 kg
--- NOTE | 2018-11-26 00:19 | ERD ---
ER Documentation Chief Complaint Chief Complaint left breast pain x 1 day HPI This is a 38-year-old patient who presents to the emergency room with complaint of pain to left lateral breast increasing in severity over the last week. Yesterday she started feeling dizzy and nauseated with pain while breast- feeding. Reports T-max at 100.2. No significant medical history. No hx of mastitis or breast disorders. ROS All systems reviewed and are negative except as per history of present illness. Medications Home Meds Active Scripts Cephalexin* (Keflex*) 500 Mg Capsule, 500 MG PO QID for 10 Days, #40 CAP Prov:MYRON SCHMITZ NP 11/26/18 Ibuprofen* (Motrin*) 600 Mg Tab, 600 MG PO Q6, #30 TAB Prov:MYRON SCHMITZ NP 11/26/18 Fluticasone Propionate (Flonase Allergy Relief) 9.9 Ml [place].susp, 2 SPRAY NASAL DAILY, #1 BOTTLE TO EACH NOSTRIL Prov:BERNABE PATRICK NP 11/30/16 Cetirizine Hcl* (Zyrtec*) 10 Mg Capsule, 10 MG PO DAILY, #30 TAB.CHEW Prov:BERNABE PATRICK NP 11/30/16 Albuterol Sulfate* (Proair HFA*) 8.5 Gm Hfa.aer.ad, 2 PUFF INH Q4H PRN for WHEEZING AND SOB, #1 INHALER Prov:BERNABE PATRICK NP 11/30/16 Albuterol Sulfate* (Proair HFA*) 8.5 Gm Hfa.aer.ad, 2 PUFF INH Q4, #1 INHALER Prov:JOHN LEE PA-C 10/20/16 Famotidine* (Pepcid*) 20 Mg Tablet, 20 MG PO BID for 14 Days, TAB Prov:VITORBRANDY OLIVIA C 08/10/15 Ibuprofen* (Motrin*) 600 Mg Tab, 600 MG PO Q6, #30 TAB Prov:BRANDY ADLER 08/10/15 Reported Medications [id number] Tpfzbzlk-KK-MPM ( 19) 1 Each Tablet, 1 TAB PO DAILY, TAB 09/07/18 Allergies Allergies: Coded Allergies: No Known Allergy (Unverified , 08/10/15) PMhx/Soc History of Surgery: Yes (gallbladder 07/2015) Anesthesia Reaction: No Hx Neurological Disorder: No Hx Respiratory Disorders: No Hx Cardiac Disorders: No Hx Psychiatric Problems: No Hx Miscellaneous Medical Probl: No Hx Alcohol Use: No Hx Substance Use: No Hx Tobacco Use: No Smoking Status: Never smoker Physical Exam Vitals Vital Signs Date Temp Pulse Resp B/P (MAP) Pulse Ox O2 O2 Flow FiO2 Time Delivery Rate 11/25/18 98.6 67 18 134/75 97 21:15 (94) Physical Exam Const: No acute distress Head: Atraumatic Eyes: Normal Conjunctiva ENT: Normal External Ears, Nose and Mouth. Neck: Full range of motion. No meningismus. Resp: Clear to auscultation bilaterally Cardio: Regular rate and rhythm, no murmurs Abd: Soft, non tender, non distended. Normal bowel sounds Skin: No petechiae or rashes. Right breast soft, no masses palpated, no redness, no swelling, no nipple discharge, no lesion, skin without dimpling. Back: No midline or flank tenderness Ext: No cyanosis, or edema Neur: Awake and alert Psych: Normal Mood and Affect Procedures/MDM This is a 38-year-old patient who presents to the emergency room with complaint of pain to left lateral breast increasing in severity over the last week. Nursing baby x3 mo. Physical exam does not reveal classic signs of mastitis such as a red, hot, swollen, firm breast, however with patient report of tenderness and malaise, antibiotics were initiated. Due to absence of typical infection, there is a low suspicion for breast abscess, sepsis, tumor or malignant process, cyst, or fungal infection. Patient was educated to home care including use of warm compress, NSAID, and continuing to express milk from the breast either through breast feeding or manual expression. Patient instructed to follow-up with her PMD in 2-3 days for reevaluation. Red flags to seek emergent medical treatment provided. Patient instructed on proper nursing technique including latch, position, duration, and nipple care. Departure Diagnosis: Primary Impression: Mastitis Condition: Stable Patient Instructions: Mastitis Referrals: [facility] Additional Instructions: Thank you very much for allowing us to participate in your care. Your health and safety is our top priority at [facility]. Call your primary care doctor TOMORROW for an appointment during the next 2-4 days and bring all the information and medications prescribed. Have prescriptions filled and follow precisely the directions on the label. If the symptoms get worse and your provider is unavailable, return to the Emergency Department immediately. TAKE ENTIRE COURSE OF ANTIBIOTICS. USE WARM COMPRESS. USE IBUPROFEN FOR PAIN AND COMFORT. FOLLOW-UP WITH PRIMARY CARE DOCTOR IN 3-5 DAYS FOR REEVALUATION. RETURN TO ER WITH WORSENING PAIN, FEVER, BLEEDING FROM NIPPLE. MYRON SCHMITZ NP Nov 26, 2018 00:19
[2018-11-26] MEDS ORDERED: CEPH-443 PO (00:20)
[2018-11-26] MEDS ORDERED: IBUP-1542 PO (00:20)
== END 2018-11-26 00:30 | disposition home or self-care (01) ==
LOC: FTE 21:10
DX: N61.0 Mastitis without abscess (principal)
CPT/HCPCS: 99283